=== PATIENT | male | born 1985 | race Hispanic/Latino ===

== ENCOUNTER 2020-12-15 13:41 | Emergency (ER) | payer OTHER ==
[~2020-12-15] VITALS: Ht 167.6 cm; Wt 95.3 kg
[2020-12-15 13:48] VITALS: BP 103/69
[2020-12-15 14:17] LABS: BASOPHILS % (AUTO) 0.5 % (0.0-5.0); EOSINOPHILS % (AUTO) 1.9 % (0.0-8.0); HEMATOCRIT 45.9 % (42-54); LYMPHOCYTES % (AUTO) 14.5 % (21.0-51.0); MEAN CORPUSCULAR HGB CONC 31.2 g/dL (32.0-36.0); MEAN CORPUSCULAR VOLUME 83.3 fL (79-99); MONOCYTES % (AUTO) 7.6 % (3.0-13.0); NEUTROPHILS % (AUTO) 74.8 % (40.0-77.0); PLATELET COUNT (AUTO) 319 K/uL (130-400); RED BLOOD CELL COUNT(AUTO) 5.51 MIL/uL (4.50-6.20); RED CELL DISTRIBUTION WIDTH 15.4 % (11.0-15.5)
[2020-12-15 14:28] LABS: CARBON DIOXIDE 25 mmol/L (21-32); CHLORIDE 103 mmol/L (101-111); CREATININE 0.9 mg/dL (0.5-1.5); GLOMERULAR FILTR. RATE CALC 103 mL/min (>60); GLUCOSE,RANDOM 111 mg/dL (70-105); POTASSIUM 3.8 mmol/L (3.5-5.1); SODIUM SERUM 141 mmol/L (136-145); UREA NITROGEN, BLOOD 18 mg/dL (7-18)
[2020-12-15 14:32] LABS: ALANINE AMINOTRANSFERASE 66 U/L (12-78); ALCOHOL, BLOOD 22 mg/dL (0-10); ASPARTATE AMINOTRANSFERASE 31 U/L (10-37); BILIRUBIN,TOTAL 0.2 mg/dL (0.2-1.0); TOTAL PROTEIN, SERUM 8.1 g/dL (6.0-8.3)
[2020-12-15 14:38] LABS: ACETAMINOPHEN < 1 mcg/mL (10-29); SALICYLATE < 2.8 mg/dL (2.8-20.0)
[2020-12-15 14:41] LABS: AMPHET/METH SCREEN,URINE NEGATIVE (NEGATIVE); BARBITURATE SCREEN, URINE NEGATIVE (NEGATIVE); BENZODIAZEPINES SCREEN,URINE NEGATIVE (NEGATIVE); CANNABINOID SCREEN,URINE POSITIVE (NEGATIVE); COCAINE SCREEN,URINE NEGATIVE (NEGATIVE); OPIATE SCREEN,URINE NEGATIVE (NEGATIVE); PHENCYCLIDINE SCREEN,URINE NEGATIVE (NEGATIVE)
[2020-12-15 16:30] VITALS: BP 144/82
== END 2020-12-15 16:31 | disposition home or self-care (01) ==
LOC: EDH 13:41
DX: R45.851 Suicidal ideations (principal); F41.9 Anxiety disorder, unspecified; F31.9 Bipolar disorder, unspecified; F20.9 Schizophrenia, unspecified; K21.9 Gastro-esophageal reflux disease without esophagitis; I10 Essential (primary) hypertension
CPT/HCPCS: 36415; 71045; 74018; 80053; 80305; 85025; 99284; G0481